=== PATIENT | female | born 1975 | race Two or more races ===

== ENCOUNTER → 2020-04-12 | Outpatient (CLI) | payer BC ==
[2014-05-18 16:19] VITALS: BP 125/70
--- NOTE | 2020-04-12 17:53 | RAD ---
PROCEDURE: FOOT BILAT 3V STUDY DATE: 04/12/2020 CLINICAL INDICATION / HISTORY: Reason: Chornic pain / Spl. Instructions: / History: . TECHNIQUE: AP, lateral and oblique views of the right and left foot. COMPARISON: None FINDINGS: Left foot shows a lucency across a prominent medial process of the navicular that could reflect presence of an accessory navicular or nonunion of an old coronary navicular fracture. The presumed accessory navicular measures 1.9 cm oblique AP by 0.9 cm oblique transverse. Right foot shows an intact elongated navicular tuberosity, compatible with a cornuate navicular. Otherwise no fracture or dislocation is identified. The bone density is normal. The joint space widths are maintained, and there are no erosions to suggest an inflammatory arthropathy. No soft tissue abnormality is seen. 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 Otherwise negative bilateral foot radiographs. Electronically signed by: Jose Elias Dyson MD (04/12/2020 5:51 PM) [id number]
== END ==
LOC: RAD 16:13
PROVIDERS: ATTEND Nurse Practitioner Gerontology
DX: M79.672 Pain in left foot (principal); M79.671 Pain in right foot
CPT/HCPCS: 73630